=== PATIENT | female | born 1945 | race Caucasian/White ===

== ENCOUNTER 2017-06-28 11:34 | Emergency (ER) | payer MEDICARE, OTHER ==
--- NOTE | 2017-06-28 12:06 | EDM.PDOC ---
ED HPI GENERAL MEDICAL PROBLEM - General Chief Complaint: Syncope Stated Complaint: PASSED OUT IN [place] Time Seen by Provider: 06/28/17 12:05 Source of Information: Reports: Patient History Limitations: Reports: No Limitations - History of Present Illness INITIAL COMMENTS - FREE TEXT/NARRATIVE: Jennifer is a 72 yo female who presents to the ER via [facility] after a syncopal episode. She states she got up this morning feeling great and ate breakfast. She proceeded to go to [facility] and while standing around 11:30 she felt lightheaded and sat her self back in her chair. She doesn't feel as if she passed out but bystanders stated she was unresponsive for 10 minutes. She admits she never became nauseated or flushed. States she has a history to similar symptoms and has been seen in the ER twice for it. States she has been diagnosed with UTI and low potassium in the past. She admits to feeling a little unsteady on her feet and off kilter. States she feels dizzy but states it isn't as if the room is spinning or anything of that nature. Onset: Today, Sudden Duration: Improving - Related Data Allergies Allergy/AdvReac Type Severity Reaction Status Date / Time amoxicillin [Amoxicillin] Allergy Cannot Verified 06/28/17 11:42 Remember quinapril HCl [From Accupril] Allergy Cough Verified 06/28/17 11:42 Home Meds: Home Meds Calcium Carbonate/Vitamin D3 [Calcium 600 + Vit D Tablet] 1 each PO DAILY [History] Cranberry 400 mg PO BEDTIME 09/22/13 [History] Levothyroxine Sodium 50 mcg PO DAILY 09/22/13 [History] Multivitamin [Multi-Vitamin Daily] 1 each PO BEDTIME 09/22/13 [History] Omeprazole 20 mg PO DAILY 09/22/13 [History] Simvastatin [Zocor] 20 mg PO DAILY 09/22/13 [History] Valsartan/Hydrochlorothiazide [Valsartan-Hctz 320-12.5 mg Tab] 0.5 tab PO BID [History] Potassium 198 mg PO BEDTIME 01/15/14 [History] Metoprolol Tartrate [Lopressor] 50 mg PO BID 01/23/14 [History] Ciprofloxacin HCl [Cipro] 500 mg PO BID #14 tablet 11/26/17 [Rx] Past Medical History HEENT History: Reports: Impaired Vision Cardiovascular History: Reports: High Cholesterol, Hypertension Gastrointestinal History: Reports: GERD Endocrine/Metabolic History: Reports: Hypothyroidism Social & Family History - Tobacco Use Smoking Status *Q: Never Smoker Second Hand Smoke Exposure: No - Caffeine Use Caffeine Use: Reports: Coffee - Recreational Drug Use Recreational Drug Use: No ED ROS GENERAL - Review of Systems Review Of Systems: See Below Constitutional: Denies: Fever, Chills, Weakness, Decreased Appetite HEENT: Denies: No Symptoms, Vision Change Respiratory: Reports: No Symptoms. Denies: Shortness of Breath, Wheezing, Cough Cardiovascular: Reports: Lightheadedness, Syncope. Denies: Chest Pain, Edema, Palpitations GI/Abdominal: Denies: Abdominal Pain, Bloody Stool, Constipation, Diarrhea, Nausea, Vomiting : Reports: Other (foul odor). Denies: Dysuria, Frequency, Hematuria, Urgency Musculoskeletal: Reports: No Symptoms Skin: Reports: No Symptoms Neurological: Reports: Dizziness. Denies: Headache, Numbness, Tingling, Trouble Speaking, Change in Speech Psychiatric: Reports: No Symptoms - Physical Exam Exam: See Below Exam Limited By: No Limitations General Appearance: Alert, WD/WN, No Apparent Distress Ears: Normal External Exam, Normal Canal, Hearing Grossly Normal, Normal TMs Nose: Normal Inspection, Normal Mucosa, No Blood Throat/Mouth: Normal Inspection, Normal Lips, Normal Gums, Normal Oropharynx, Normal Voice, No Airway Compromise Head Exam: Atraumatic, Normocephalic Neck: Normal Inspection, Supple, Non-Tender, Full Range of Motion Respiratory/Chest: No Respiratory Distress, Lungs Clear, Normal Breath Sounds, No Accessory Muscle Use, Chest Non-Tender Cardiovascular: Normal Peripheral Pulses, Regular Rate, Rhythm, No Edema, No Murmur, No Rub GI/Abdominal: Normal Bowel Sounds, Soft, Non-Tender, No Organomegaly, No Distention, No Mass Neuro Exam (Abbreviated): Alert, Oriented, CN II-XII Intact, Normal Cognition, No Motor/Sensory Deficits Extremities: Normal Inspection, No Pedal Edema, Normal Capillary Refill Psychiatric: Normal Affect, Normal Mood Skin Exam: Warm, Dry, Intact, Normal Color, No Rash EKG INTERPRETATION EKG Date: 06/28/17 Time: 12:15 Rhythm: NSR Rate (Beats/Min): 60 Comparison: NA - No Prior EKG Course - Vital Signs Last Recorded V/S: Last Vital Signs Temp 95.8 F 06/28/17 11:37 Pulse 62 06/28/17 11:37 Resp 18 06/28/17 11:37 BP 163/65 H 06/28/17 11:37 Pulse Ox 93 L 06/28/17 11:37 - Orders/Labs/Meds Orders: Active Orders 24 hr Category Date Time Status Head wo Cont [CT] Stat Exams 06/28/17 12:10 Ordered CULTURE URINE [RM] Stat Lab 06/28/17 12:00 Received NS + KCl 20mEq/L [Normal Saline with 20 mEq KCl] 1,000 Med 06/28/17 12:45 Active ml IV ASDIRECTED Medication Orders Potassium Chloride/Sodium Chloride (Normal Saline With 20 Meq Kcl) 1,000 mls @ 250 mls/hr IV ASDIRECTED ANDREY Labs: Laboratory Tests 06/28/17 06/28/17 06/28/17 Range/Units 11:45 11:45 11:45 WBC 8.1 (5.0-10.0) 10^3/uL RBC 4.40 (4.00-5.50) 10^6/uL Hgb 13.4 (12.0-16.0) g/dL Hct 39.2 (37.0-47.0) % MCV 89.1 (82.0-94.0) fL MCH 30.5 (27.0-32.0) pg MCHC 34.2 (33.0-38.0) g/dL RDW Coeff of Nika 12.5 (11.0-15.0) % Plt Count 257 (150-400) 10^3/uL Neut % (Auto) 64.1 (35-85) % Lymph % (Auto) 21.4 (10-55) % [place] % (Auto) 7.8 (0-16) % Eos % (Auto) 6.0 H (0-5) % Baso % (Auto) 0.7 (0-3) % Neut # (Auto) 5.16 (1.80-7.00) 10^3/uL Lymph # (Auto) 1.72 (1.00-4.80) 10^3/uL [place] # (Auto) 0.63 (0.00-0.80) 10^3/uL Eos # (Auto) 0.48 H (0.00-0.45) 10^3/uL Baso # (Auto) 0.06 10^3/uL PT 10.5 (9.7-12.3) SEC INR 0.97 (0.92-1.18) Sodium 137 (136-145) mEq/L Potassium 3.0 L (3.5-5.0) mEq/L Chloride 98 (98-106) mEq/L Carbon Dioxide 32 (21-32) mmol/L BUN 16 (7-18) mg/dL Creatinine 1.0 (0.6-1.0) mg/dL Est Cr Clr Drug Dosing 45.95 mL/min Estimated GFR (MDRD) 54 L (>=60) mL/min Glucose 144 H (75-99) mg/dL Calcium 8.9 (8.4-10.1) mg/dL Lactate Dehydrogenase 202 H (100-190) U/L Creatine Kinase 94 (21-215) U/L Troponin I < 0.017 (0.00-0.06) ng/mL Urine Color (YELLOW) Urine Appearance (CLEAR) Urine pH (4.5-8.0) Ur Specific [place] (1.003-1.020) Urine Protein (NEGATIVE) mg/dL Urine Glucose (UA) (NEGATIVE) mg/dL Urine Ketones (NEGATIVE) mg/dL Urine Occult Blood (NEGATIVE) Urine Nitrite (NEGATIVE) Urine Bilirubin (NEGATIVE) Urine Urobilinogen (0.2-1.0) EU/dL Ur Leukocyte Esterase (NEGATIVE) Urine RBC (0-5) /HPF Urine WBC (0-5) /HPF Ur Squamous Epith Cells (NOT SEEN) /HPF Urine Bacteria (NOT SEEN) /HPF Hyaline Casts (NOT SEEN) /LPF Urine Mucus (NOT SEEN) /HPF Urinalysis Comment 06/28/17 Range/Units 12:00 WBC (5.0-10.0) 10^3/uL RBC (4.00-5.50) 10^6/uL Hgb (12.0-16.0) g/dL Hct (37.0-47.0) % MCV (82.0-94.0) fL MCH (27.0-32.0) pg MCHC (33.0-38.0) g/dL RDW Coeff of Nika (11.0-15.0) % Plt Count (150-400) 10^3/uL Neut % (Auto) (35-85) % Lymph % (Auto) (10-55) % [place] % (Auto) (0-16) % Eos % (Auto) (0-5) % Baso % (Auto) (0-3) % Neut # (Auto) (1.80-7.00) 10^3/uL Lymph # (Auto) (1.00-4.80) 10^3/uL [place] # (Auto) (0.00-0.80) 10^3/uL Eos # (Auto) (0.00-0.45) 10^3/uL Baso # (Auto) 10^3/uL PT (9.7-12.3) SEC INR (0.92-1.18) Sodium (136-145) mEq/L Potassium (3.5-5.0) mEq/L Chloride (98-106) mEq/L Carbon Dioxide (21-32) mmol/L BUN (7-18) mg/dL Creatinine (0.6-1.0) mg/dL Est Cr Clr Drug Dosing mL/min Estimated GFR (MDRD) (>=60) mL/min Glucose (75-99) mg/dL Calcium (8.4-10.1) mg/dL Lactate Dehydrogenase (100-190) U/L Creatine Kinase (21-215) U/L Troponin I (0.00-0.06) ng/mL Urine Color Yellow (YELLOW) Urine Appearance Slightly cloudy (CLEAR) Urine pH 7.0 (4.5-8.0) Ur Specific [place] 1.015 (1.003-1.020) Urine Protein 30 H (NEGATIVE) mg/dL Urine Glucose (UA) Negative (NEGATIVE) mg/dL Urine Ketones Trace H (NEGATIVE) mg/dL Urine Occult Blood Small H (NEGATIVE) Urine Nitrite Positive H (NEGATIVE) Urine Bilirubin Negative (NEGATIVE) Urine Urobilinogen 0.2 (0.2-1.0) EU/dL Ur Leukocyte Esterase Trace H (NEGATIVE) Urine RBC 5-10 H (0-5) /HPF Urine WBC 20-30 H (0-5) /HPF Ur Squamous Epith Cells Occasional H (NOT SEEN) /HPF Urine Bacteria Many H (NOT SEEN) /HPF Hyaline Casts Occasional H (NOT SEEN) /LPF Urine Mucus Few H (NOT SEEN) /HPF Urinalysis Comment Meds: Medications Generic Name Dose Route Start Last Admin Trade Name Freq PRN Reason Stop Dose Admin Potassium Chloride/Sodium Chloride 1,000 mls @ 250 mls/hr 06/28/17 12:45 Normal Saline With 20 Meq Kcl IV ASDIRECTED ANDREY Discontinued Medications Generic Name Dose Route Start Last Admin Trade Name Freq PRN Reason Stop Dose Admin Ceftriaxone Sodium 1 gm 06/28/17 12:37 Rocephin IVPUSH 06/28/17 12:38 ONETIME ONE - Radiology Interpretation Free Text/Narrative:: No acute findings. Chronic small vessel changes via radiologist. CT Results Date: 06/28/17 CT Results Time: 12:44 Departure - Departure Time of Disposition: 17:00 Disposition: Home, Self-Care 01 Clinical Impression: UTI (urinary tract infection), Near syncope - Discharge Information Prescriptions: Ciprofloxacin HCl [Cipro] 500 mg PO BID #14 tablet Instructions: Hypokalemia, Urinary Tract Infection, Adult, Dehydration, Elderly , [id number] Forms: ED Department Discharge Additional Instructions: 1) Recommend pushing fluids 2) Take Potassium as directed 3) Recommend follow up appointment with Jennifer Garcia after finishing oral antibiotic 4) Start Ciprofloxacin in the morning, prescription is at [facility] in [place] 5) Hand out in regards to UTI's and hypokalemia given. 6) If any worsening of symptoms or concerns, return to emergency room. - Problem List & Annotations (1) Near syncope SNOMED Code(s): 029518842 Code(s): R55 - SYNCOPE AND COLLAPSE Status: Acute (2) UTI (urinary tract infection) SNOMED Code(s): 17547743 Code(s): N39.0 - URINARY TRACT INFECTION, SITE NOT SPECIFIED Status: Acute Qualifiers: Urinary tract infection type: site unspecified Hematuria presence: without hematuria Qualified Code(s): N39.0 - Urinary tract infection, site not specified - Problem List Review Problem List Initiated/Reviewed/Updated: Yes - My Orders Last 24 Hours: My Active Orders 06/28/17 12:00 CULTURE URINE [RM] Stat 06/28/17 12:10 Head wo Cont [CT] Stat 06/28/17 12:45 NS + KCl 20mEq/L [Normal Saline with 20 mEq KCl] 1,000 ml IV ASDIRECTED - Assessment/Plan Last 24 Hours: My Active Orders 06/28/17 12:00 CULTURE URINE [RM] Stat 06/28/17 12:10 Head wo Cont [CT] Stat 06/28/17 12:45 NS + KCl 20mEq/L [Normal Saline with 20 mEq KCl] 1,000 ml IV ASDIRECTED Plan: Discussed findings with Jennifer. Jennifer has had the same symptoms on 2 prior episodes in the past. She has a positive UTI and low potasssium currently, same as prior. We discussed treatment options and will take to the floor for 1 Liter of NS with 20mEq of Potassium chloride over 4 hours. She will also receive 1 gm of Rocephin via IV. After fluids we will plan for discharge, which she verbalized complete understanding. She does have friends here who will take her home today. Further instructions under additional instructions.
[2017-06-28 12:16] LABS: SODIUM,NA 137 mEq/L (136-145)
[2017-06-28 12:20] LABS: CHLORIDE,CL 98 mEq/L (98-106)
[2017-06-28] MEDS ORDERED: cefTRIAXone 1 GM Vial IVPUSH ONE (12:37)
[2017-06-28] MEDS ORDERED: NS + KCl 20mEq/L 1,000 ML IV SCH (12:45)
[2017-06-28 14:55] VITALS: BP 175/84
== END 2017-06-28 17:25 | disposition home or self-care (01) ==
LOC: CC.ED 11:34
DX: N39.0 Urinary tract infection, site not specified (principal); R55 Syncope and collapse; E78.00 Pure hypercholesterolemia, unspecified; I10 Essential (primary) hypertension; K21.9 Gastro-esophageal reflux disease without esophagitis; E03.9 Hypothyroidism, unspecified; Z88.1 Allergy status to other antibiotic agents; Z88.8 Allergy status to other drugs, medicaments and biological substances; Z79.899 Other long term (current) drug therapy
CPT/HCPCS: 36415; 70450; 80048; 81001; 82550; 83615; 84484; 85025; 85610; 87086; 87088; 93005; 96365; 96366; 96375; 99285; J0696; J3480; 87186; 93010; 96361; 96374; 99284

== ENCOUNTER 2023-11-04 11:54 | Emergency (ER) | payer MEDICARE, OTHER ==
[2023-11-04] MEDS: Lidocaine 1% 5 ML VIAL INJECT ONE (12:14)
[2023-11-04] MEDS: Diphtheria/Tetanus Toxoids,Adult (Td) 0.5 ML SDV IM ONE (12:36)
[2023-11-04] MEDS: Bacitracin/Neomycin/Polymyxin B Oint 28.4 GM Tube TOP ONE (12:38)
[2023-11-04 13:41] VITALS: BP 132/62; PULSE 64
== END 2023-11-04 12:55 | disposition home or self-care (01) ==
LOC: CC.ED 11:54
DX: S61.255A Open bite of left ring finger without damage to nail, initial encounter (principal); S61.452A Open bite of left hand, initial encounter; I10 Essential (primary) hypertension; E78.00 Pure hypercholesterolemia, unspecified; K21.9 Gastro-esophageal reflux disease without esophagitis; E03.9 Hypothyroidism, unspecified; Z79.899 Other long term (current) drug therapy; Z88.0 Allergy status to penicillin; Z23 Encounter for immunization; Z88.8 Allergy status to other drugs, medicaments and biological substances; W54.0XXA Bitten by dog, initial encounter
CPT/HCPCS: 12001; 90471; 90714; 99283; 99283-25; A9270-GY; J3490